=== PATIENT | male | born 1995 | race Caucasian/White ===

== ENCOUNTER 2021-08-10 08:48 | Emergency (ER) | payer SELFPAY ==
[2021-08-10 08:56] VITALS: BP 162/108; PULSE 81; RESP 18; TEMP 36.2; O2SAT 99; BMI 23.0
--- NOTE | 2021-08-10 09:15 | W.ED.DENTAL ---
HPI - Dental/Oral General: Chief complaint: Dental/Oral Stated complaint: Tooth infection Time Seen by Provider: 08/10/21 08:49 History of Present Illness: Patient is a 26-year-old male comes to the ED with dental pain. Symptoms started approximately 4 days ago. Yesterday and today his dental pain and swelling got worse. Pain is located in the left lower mandible and he has swelling in his left lower mandible as well. He rates the pain currently an 8 out of 10. He is currently trying to call around to find a dentist. Associated symptoms: Denies fever(s) or odynophagia Review of Systems Const: Denies: fever(s), chills or fatigue Eyes: Denies: change in vision or eye discomfort ENMT: Reports: dental pain; Denies: throat pain, odynophagia, nasal discharge or nasal congestion Card: Denies: chest pain, palpitations, edema, swelling of feet/ankles, dyspnea on exertion or orthopnea Resp: Denies: dyspnea, productive cough or non-productive cough GI: Denies: abdominal pain, nausea, vomiting, diarrhea, constipation or hematochezia : Denies: flank pain, difficulty urinating, dysuria or hematuria Musc: Denies: neck pain, back pain or extremity swelling Skin/Breast: Denies: rash or new lesions Neuro: Denies: headache(s), numbness in extremities or weakness in extremities PFS ED PFSH: Medical History No pertinent family history Surgical History No pertinent past surgical history Physical Exam Const: COMMON NORMALS: no acute distress, patient oriented x3 and alert HENMT: COMMON NORMALS: normocephalic HEAD & SCALP: normocephalic FACE & SINUS: edema on the left mandible MOUTH: Normal oral and palatal mucosa present TEETH & GINGIVA: Yes abnormal tooth and associated gingiva lower left first bicuspid tender, with associated gingival edema and other (Dental caries) and Yes caries THROAT: posterior oropharynx normal and uvula midline Neck/C-Spine: COMMON NORMALS: supple GENERAL: Yes normal visual inspection Resp: COMMON NORMALS: normal respiratory effort, No retractions, No use of accessory muscles and clear to auscultation bilaterally AUSCULTATION: clear to auscultation bilaterally Cardio: COMMON NORMALS: regular rate, regular rhythm, S1 normal heart sound present, S2 normal heart sound present, No gallops present (Cardio), No clicks present (Cardio), No murmurs present (Cardio) and Peripheral pulses 2+ throughout RATE: regular rate RHYTHM: regular rhythm HEART SOUNDS: S1 normal heart sound present and S2 normal heart sound present PERIPHERAL PULSES: Peripheral pulses 2+ throughout GI: COMMON NORMALS: Normal to inspection, nondistended, normoactive bowel sounds present, Soft to palpation, non-tender and no masses PALPATION: Yes Soft to palpation : COMMON NORMALS: Yes no CVA tenderness BLADDER/KIDNEY EXAM: Yes no CVA tenderness Back/Pelvis: COMMON NORMALS: no CVA tenderness Extremity: COMMON NORMALS: normal to inspection Neuro: COMMON NORMALS: patient oriented x3 and moves all extremities SENSORIUM/ORIENTATION: Yes alert Skin: GENERAL SKIN EXAM: dry skin Course Vital Signs: Vital signs: Vital Signs Temperature 97.1 F L 08/10/21 08:56 Pulse Rate 81 08/10/21 08:56 Respiratory Rate 18 08/10/21 08:56 Blood Pressure 162/108 08/10/21 08:56 Pulse Oximetry 99 08/10/21 08:56 MDM - Dental/Oral Medical Decision Making Patient is a 26-year-old male comes to the ED with dental pain. He has some left mandible swelling. No problems breathing. Patient was given a dose of clindamycin and hydrocodone while here in the ED to help with pain. He was diagnosed with dental infection and discharged home with a prescription for clindamycin and ibuprofen 800 mg tablets. He was informed to contact a dentist to set up an appoint with them for further management of dental pain. Return to ED precautions given. Patient understood and agreed with plan. Discharge Plan Discharge Patient Disposition: Home Clinical Impression: Dental infection Condition: Stable Prescriptions: New clindamycin HCl 150 mg capsule 300 mg PO QID 7 Days Qty: 56 0RF ibuprofen 800 mg tablet 800 mg PO Q8H PRN (Reason: pain) Qty: 20 0RF Discharge Orders: Discharge ED (Routine); Ordered 08/10/21 Ordered By: Brandon Herrera Discharge Diet: Regular Discharge Activity: Resume usual activity Patient Instructions: Dental Abscess (ED) Activity Restrictions/Additional Instructions: Follow-up with dentist as soon as possible to have dental pain treated. Medications as prescribed. Return to the ER or your medical provider if condition worsens. Please read and understand discharge instructions. Thank you for choosing [facility] for your healthcare needs today. Please realize this is an emergency room and that we are providing you with a medical screening exam and this may not be complete and all inclusive of all the testing and or work up that you may need to determine your ailment or severity of your illness. It is very important that you follow up as instructed or that you return to the Emergency Department should you have concerns or if your condition changes or worsens in any way. Coding Level of Care Code ED Buck[employer]acer for Alex Fwmell Exam Comprehensive
[2021-08-10] MEDS: HYDROcodone-acetaminophen 5-325 mg Tablet 1 TAB PO (09:23)
[2021-08-10] MEDS: clindamycin 150 mg Capsule 300 MG PO (09:23)
== END 2021-08-10 09:27 | disposition home or self-care (01) ==
PROVIDERS: Emergency Provider Physician Assistant
DX: K04.7 Periapical abscess without sinus (principal)
CPT/HCPCS: 99283

== ENCOUNTER 2023-07-31 00:33 | Emergency (ER) | payer SELFPAY ==
[2023-07-31 01:00] VITALS: BP 154/87; PULSE 76; RESP 20; TEMP 36.5; O2SAT 96; BMI 25.1
--- NOTE | 2023-07-31 01:17 | ED_ITS ---
HPI - Dental/Oral General: Chief complaint: Dental/Oral Stated complaint: dental pain Time Seen by Provider: 07/31/23 00:44 History of Present Illness: 28-year-old male presents emerged part w ith complaints of dental pain to the left upper molar area. He states it has been intermittently worsening over the previous 3 to 4 days. He states he has not seen a dentist for this concern. He denies difficulty with swallowing or speaking. He states that he does use cold water to rinse his mouth every few minutes which makes it feel better. He states he is not attempted to take any Tylenol or ibuprofen to ease the pain but he states he has not consumed several beers and shots of alcohol over the previous 3 to 4 days. He does appear to be acutely intoxicated while here in the emergency department but is very cooperative and pleasant at present. Review of Systems General: Reports: 10 or more systems reviewed and unremarkable except in HPI and below ENMT: Reports: mouth pain [facility] ED PFSH: Medical History No pertinent family history Surgical History No pertinent past surgical history Physical Exam Narrative: EXAM NARRATIVE: Constitutional: the patient appears well nourished and of normal development. Vital signs as documented. No acute distress at present. Alert and oriented-to person, place, time and situation. Head, eyes, ears, nose, mouth, throat: Normocephalic, atraumatic. Pupils-equal, round, reactive to light. No scleral icterus. Normal-appearing external ears. Normal appearing nasal turbinates, no drainage. No obvious oral lesions, posterior oropharynx without erythema or exudates. There are 2 small cavities that are located in tooth 14 and tooth 15. There is no gingivitis or periapical abscess. Neck: Supple, trachea is midline, no lymphadenopathy, Lungs: clear to auscultation to all lung jimenes. Symmetrical rise and fall of chest, no obvious signs of increased work of breathing at present. Cardiac: Regular rate and rhythm, positive S1, S2. No murmurs, rubs or gallops that I can appreciate Abdomen: Soft, non-tender to palpation, normal active bowel sounds to all quadrants. Extremities: 2+ pulses in the upper extremities that are equal bilaterally, 2+ pulses in the lower extremities that are equal bilaterally. Non-edematous. Moves all extremities well, sensation to all extremities are noted. Skin: Warm, dry, intact. Course Vital Signs: Vital signs: Vital Signs Temperature 97.7 F 07/31/23 01:00 Pulse Rate 76 07/31/23 01:00 Respiratory Rate 20 H 07/31/23 01:00 Blood Pressure 154/87 07/31/23 01:00 Pulse Oximetry 96 07/31/23 01:00 [facility] - Dental/Oral Medical Decision Making Patient complains of dental pain we will provide him Toradol intramuscular as well as naproxen and have him follow-up with his dentist. Review the medical records demonstrates the patient has been here previously for dental pain. Medical Records I reviewed the patient's medical records. No radiology studies performed this visit Discharge Plan Discharge Patient Disposition: Home Clinical Impression: Toothache, Dental caries Condition: Stable Prescriptions: New naproxen 500 mg tablet 500 mg PO Q12H PRN (Reason: pain) Qty: 20 0RF No Action ibuprofen 800 mg tablet 800 mg PO Q8H PRN (Reason: pain) Qty: 20 0RF Discharge Orders: Discharge ED (Routine); Ordered 07/31/23 Ordered By: Weston Upton Discharge Diet: Usual diet Discharge Activity: Resume usual activity Patient Instructions: Opioid Safety, Pain Management Activity Restrictions/Additional Instructions: Activity Restrictions/Additional Instructions: Thank you for choosing [facility] for your healthcare needs today. Please realize that you were seen in the Emergency Department and that we are providing you with an emergency medical screening exam and this may not be a complete and all inclusive of all the testing and or medical work-up that you may need to determine your ailment or severity of your illness. It is very important that you follow-up as instructed with your Primary care provider or Specialist for additional evaluation and to discuss your medical treatment plan. Coding Level of Care Code ED Teles[employer] Agent for Alex Vallejo
[2023-07-31] MEDS: ketorolac 60 mg/2 mL INJ IM (01:25)
[2023-07-31 01:30] VITALS: BP 148/76; PULSE 78; RESP 16; O2SAT 95
[2023-07-31 01:46] VITALS: BP 148/76; PULSE 85; RESP 16; O2SAT 97
== END 2023-07-31 01:40 | disposition home or self-care (01) ==
PROVIDERS: Emergency Provider Internal Medicine
DX: K02.9 Dental caries, unspecified (principal); K08.89 Other specified disorders of teeth and supporting structures
CPT/HCPCS: 96372; 99284; J1885